=== PATIENT | female | born 2000 | race Caucasian/White ===

== ENCOUNTER 2020-05-14 09:49 | Emergency (ER) | payer SELFPAY ==
[2020-05-14 10:34] LABS: Absolute Lymphocytes (CBC) 1.7 K/uL (0.7-4.9); Basophils % 0.7 % (0-1.3); Hematocrit 40.7 % (36.0-45.0); MPV 8.7 fL (7.6-11.3); RBC Red Blood Cell Count 4.62 M/uL (3.86-4.86)
[2020-05-14 10:49] LABS: Urine Blood 1+ (NEG); Urine Glucose NEGATIVE (NEG); Urine Protein NEGATIVE (NEG); Urine Specific Gravity 1.025 (1.005-1.030); Urine pH 6.5 (5.0-7.0)
[2020-05-14 10:55] LABS: Potassium 3.6 mmol/L (3.5-5.1)
--- NOTE | 2020-05-14 11:09 | RAD REPORT ---
EXAM DESCRIPTION: RAD - Chest Single View - 05/14/2020 10:47 am CLINICAL HISTORY: right sided chest pain Chest pain. COMPARISON: No comparisons FINDINGS: Portable technique limits examination quality. The lungs are grossly clear. The heart is normal in size. No displaced fractures. IMPRESSION: No acute intrathoracic process suspected.
--- NOTE | 2020-05-14 11:30 | EDPHYS ---
Physician Documentation [facility] Name: Bushra Marc Age: 20 yrs Sex: Female : 2000 Arrival Date: 05/14/2020 Time: 09:51 Bed 18 Private MD: ED Physician Lazaro Parekh HPI: 05/14 10:11 This 20 yrs old Female presents to ER via Ambulatory with complaints of Right jmm side pain. 10:11 The patient or guardian reports chest pain that is located primarily in the anterior jm chest wall, right. The pain does not radiate. Associated signs and symptoms: Pertinent positives: cough, Pertinent negatives: shortness of breath. The chest pain is described as sharp. Duration: The patient or guardian reports a single episode, that is still ongoing. Modifying factors: The symptoms are alleviated by nothing. the symptoms are aggravated by deep breath. This is a 20 year old female with a history of asthma, that presents to the ED with complaints of right sided chest pain beginning approx a week ago worsening with cough. . 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 - Social history:: Smoking status: Patient reports the use of cigarette tobacco products, smokes one-half pack cigarettes per day. ROS: 10:11 Constitutional: Negative for fever, chills, and weight loss. jmm 10:11 Cardiovascular: Positive for chest pain. 10:11 Respiratory: Positive for cough. 10:11 All other systems are negative. Exam: 10:11 Constitutional: This is a well developed, well nourished patient who is awake, alert, jmm and in no acute distress. Head/Face: atraumatic. Eyes: EOMI, no conjunctival erythema appreciated ENT: Moist Mucus Membranes Cardiovascular: Regular rate and rhythm. No edema appreciated 10:11 Abdomen/GI: Non distended, soft Back: Normal ROM Skin: General appearance color normal MS/ Extremity: Moves all extremities, no obvious deformities appreciated, no edema noted to the lower extremities Neuro: Awake and alert, normal gait Psych: Behavior is normal, Mood is normal, Patient is cooperative and pleasant 10:11 Chest/axilla: Palpation: tenderness, that is moderate, of the anterior aspect of right upper chest. 10:44 ECG was reviewed by the Attending Physician. [facility] Vital Signs: 10:03 BP 139 / 72; Pulse 100; Resp 18; Temp 98.5(O); Pulse Ox 100% on R/A; Weight 66.22 kg; em Height 5 ft. 5 in. (165.10 cm); Pain 6/10; 11:08 BP 112 / 61; Pulse 79; Resp 18; Pulse Ox 100% on R/A; jr10 11:40 BP 115 / 62; Pulse 87; Resp 18; Temp 98.5; Pulse Ox 100% on R/A; Pain 0/10; jr10 10:03 Body Mass Index 24.30 (66.22 kg, 165.10 cm) em MDM: 10:11 Patient medically screened. [facility] 11:28 Data reviewed: vital signs, nurses notes. Counseling: I had a detailed discussion with [facility] the patient and/or guardian regarding: the historical points, exam findings, and any diagnostic results supporting the discharge/admit diagnosis, lab results, radiology results, the need for outpatient follow up, to return to the emergency department if symptoms worsen or persist or if there are any questions or concerns that arise at home. ED course: CP is reproduceable. D-dimer negative. I do not suspect an acutely threatening intrathoracic process. Patient is alert and non toxic in appearance in the ED. Patient is advised to follow up with pcp and otherwise given strict return precautions. Patient understood and agrees with the plan of care. . 05/14 10:19 Order name: D-Dimer; Complete Time: 11:05 [facility] 05/14 10:19 Order name: BMP; Complete Time: 11: [facility] 05/14 10:19 Order name: Chest Single View XRAY; Complete Time: 11:12 [facility] 05/14 10:19 Order name: CBC with Diff; Complete Time: 11: [facility] 05/14 10:22 Order name: Urine Dipstick--Ancillary (enter results); Complete Time: 11: 05/14 10:22 Order name: Urine --Ancillary (enter results); Complete Time: 11: 05/14 10:19 Order name: EKG - Nurse/Tech; Complete Time: 10:43 [facility] 05/14 10:19 Order name: Saline Lock; Complete Time: 10:32 jm EC:44 Rate is 94 beats/min. Rhythm is regular. QRS [place] is Normal. [place] interval is normal. QRS jmm interval is normal. QT interval is normal. No Q waves. T waves are Normal. No ST changes noted. Reviewed by me. Administered Medications: No medications were administered Disposition: 12:55 Co-signature as Attending Physician, Lazaro Parekh MD I agree with the assessment and kdr plan of care. Disposition: 05/14/20 11:30 Discharged to Home. Impression: Chest pain, unspecified. - Condition is Stable. - Discharge Instructions: Nonspecific Chest Pain. - Prescriptions for Medrol (Itz) 4 mg Oral Tablets, Dose Pack - take 1 tablet by ORAL route as directed - follow package instructions; 1 packet. orphenadrine citrate 100 mg Oral Tablet Sustained Release - take 1 tablet by ORAL route 2 times per day As needed; 20 tablet. - Medication Reconciliation Form, Thank You Letter, Antibiotic Education, Prescription Opioid Use form. - Follow up: Private Physician; When: 2 - 3 days; Reason: Recheck today's complaints, Continuance of care, Re-evaluation by your physician. Signatures: Dispatcher [employer] EDLazaro Miner MD MD kdr Mickail, Joel, PA PA [facility] Wisam Serrano, RN RN Perla Blackwell RN RN jr10 Corrections: (The following items were deleted from the chart) 11:42 11:30 05/14/2020 11:30 Discharged to Home. Impression: Chest pain, unspecified. jr10 Condition is Stable. Forms are Medication Reconciliation Form, Thank You Letter, Antibiotic Education, Prescription Opioid Use. Follow up: Private Physician; When: 2 - 3 days; Reason: Recheck today's complaints, Continuance of care, Re-evaluation by your physician. [facility]
--- NOTE | 2020-05-14 11:30 | ER ---
Nurse's Notes [facility] Name: Bushra Marc Age: 20 yrs Sex: Female : 2000 Arrival Date: 05/14/2020 Time: 09:51 Bed 18 Private MD: Diagnosis: Chest pain, unspecified Presentation: 05/14 10:03 Chief complaint: Patient states: right sided chest pain that radiates into the right em side of back when coughing or sneezing, mild cough, threw up once yesterday, had 100 temp 3 days ago. Coronavirus screen: Patient reports a cough. Patient reports shortness of breath or difficulty breathing. Patient reports a measured and/or subjective temperature greater than 100.4F. Patient denies travel on a cruise ship or to a country the [facility] currently lists as an affected area. Patient denies contact with known and/or suspected case of COVID-19. Ebola Screen: Patient negative for fever greater than or equal to 101.5 degrees Fahrenheit, and additional compatible Ebola Virus Disease symptoms Patient denies exposure to infectious person. Patient denies travel to an Ebola-affected area in the 21 days before illness onset. No symptoms or risks identified at this time. Initial Sepsis Screen: Does the patient meet any 2 criteria? HR > 90 bpm. No. Patient's initial sepsis screen is negative. Does the patient have a suspected source of infection? No. Patient's initial sepsis screen is negative. Risk Assessment: Do you want to hurt yourself or someone else? Patient reports no desire to harm self or others. Onset of symptoms was May 06, 2020. 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 - Social history:: Smoking status: Patient reports the use of cigarette tobacco products, smokes one-half pack cigarettes per day. Screenin:30 Abuse screen: Denies threats or abuse. Denies injuries from another. Nutritional jr10 screening: No deficits noted. Tuberculosis screening: No symptoms or risk factors identified. Fall Risk IV access (20 points). Assessment: 10:30 General: Appears in no apparent distress. Behavior is calm, cooperative. Pain: jr10 Complains of pain in diaphragm and right breast Pain radiates to left scapular area, left subscapular area and left mid back. Neuro: No deficits noted. Cardiovascular: Reports chest pain, Denies diaphoresis, nausea, shortness of breath, vomiting, Capillary refill < 3 seconds Pulses are all present. Edema is absent. Respiratory: Reports cough that is dry, pain with cough since x1 week pain with respiration since x1 week Breath sounds are clear bilaterally. GI: No deficits noted. : No deficits noted. Derm: No deficits noted. Musculoskeletal: No deficits noted. Vital Signs: 10:03 BP 139 / 72; Pulse 100; Resp 18; Temp 98.5(O); Pulse Ox 100% on R/A; Weight 66.22 kg; em Height 5 ft. 5 in. (165.10 cm); Pain 6/10; 11:08 BP 112 / 61; Pulse 79; Resp 18; Pulse Ox 100% on R/A; jr10 11:40 BP 115 / 62; Pulse 87; Resp 18; Temp 98.5; Pulse Ox 100% on R/A; Pain 0/10; jr10 10:03 Body Mass Index 24.30 (66.22 kg, 165.10 cm) em ED Course: 09:51 Patient arrived in ED. mr 09:55 Manuel Moran PA is PHCP. m 09:55 Lazaro Parekh MD is Attending Physician. [facility] 10:06 Triage completed. em 10:06 Arm band placed on. em 10:26 Initial lab(s) drawn, by la, sent to lab. Inserted saline lock: 22 gauge in right em antecubital area, using aseptic technique. Blood collected. 10:27 Perla Horne, NANCI is Primary Nurse. jr10 10:30 Patient has correct armband on for positive identification. Placed in gown. Bed in low jr10 position. Call light in reach. Side rails up X 1. director of content and programming on. Pulse ox on. NIBP on. 10:47 Chest Single View XRAY In Process Unspecified. EDMS 11:41 IV discontinued, No redness/swelling at site. Pressure dressing applied. jr10 Administered Medications: No medications were administered Outcome: 11:30 Discharge ordered by MD. hernandez 11:41 Discharged to home ambulatory. jr10 11:41 Condition: good 11:41 Discharge instructions given to patient, Instructed on discharge instructions, follow up and referral plans. Demonstrated understanding of instructions, follow-up care, medications, Prescriptions given X 2. 11:42 Patient left the ED. jr10 Signatures: Dispatcher [employer] EDManuel Schwab PA PA jmm Rivera, Mary mr Munoz, Edgar, RN RN Perla Blackwell RN RN jr10
[2020-05-14 11:50] VITALS: TEMP 98.5; O2SAT 100
[2020-05-14 11:53] VITALS: BP 115/62
--- NOTE | 2020-05-15 15:28 | EKG ---
Test Date: 2020-05-14 Test Time: 10:27:48 Corporate Giving Manager: LAURITA MEASUREMENT RESULTS: Intervals: Rate: 94 WA: 128 QRSD: 92 QT: 338 QTc: 422 [place]: P: 38 WA: 128 QRS: 83 T: 56 INTERPRETIVE STATEMENTS: Normal sinus rhythm Normal ECG No previous ECG available for comparison Electronically Signed On 05-15-20 15:24:28 CDT by Santino Tirado
== END 2020-05-14 11:42 | disposition home or self-care (01) ==
LOC: ER 09:49
DX: R07.9 Chest pain, unspecified (principal); J45.909 Unspecified asthma, uncomplicated; F17.210 Nicotine dependence, cigarettes, uncomplicated
CPT/HCPCS: 36415; 71045; 80048; 81003; 81025; 85025; 85379; 93005; 99284

== ENCOUNTER 2020-05-20 00:13 | Emergency (ER) | payer SELFPAY ==
[2020-05-20 01:12] LABS: Basophils % 0.4 % (0-1.3); Hematocrit 39.4 % (36.0-45.0); Lymphocytes % 29.9 % (15.3-44.8); MPV 8.7 fL (7.6-11.3); RBC Red Blood Cell Count 4.48 M/uL (3.86-4.86)
[2020-05-20 01:23] LABS: Protime INR 1.17
[2020-05-20 01:27] LABS: Barbiturates NEGATIVE (NEGATIVE); Benzodiazepines NEGATIVE (NEGATIVE); Cocaine NEGATIVE (NEGATIVE); METHAMPHETAM NEGATIVE (NEGATIVE); Methadone NEGATIVE (NEGATIVE); Opiates NEGATIVE (NEGATIVE); Phencyclidine NEGATIVE (NEGATIVE); THC Cannibis POSITIVE (NEGATIVE)
[2020-05-20 01:27] LABS: ALT/SGPT 15 U/L (12-78); AST/SGOT 16 U/L (15-37); Albumin 4.2 g/dL (3.4-5.0); Alkaline Phosphatase 71 U/L (45-117); BUN Blood Urea Nitrogen 13 mg/dL (7-18); Bicarbonate 25 mmol/L (21-32); Bilirubin Direct 0.2 mg/dL (0-0.2); Bilirubin Total 0.8 mg/dL (0.2-1.0); Glucose Level 103 mg/dL (74-106); Protein, Total 7.9 g/dL (6.4-8.2); Sodium Level 141 mmol/L (136-145)
[2020-05-20] MEDS ORDERED: TETANUS & DIPHTHERIA TOX,ADULT 0.5 ML VIAL ONE (01:43)
[2020-05-20 02:39] LABS: Urine Blood 2+ (NEG); Urine Glucose NEGATIVE (NEG); Urine Protein 1+ (NEG); Urine Specific Gravity 1.025 (1.005-1.030)
--- NOTE | 2020-05-20 10:15 | RAD REPORT ---
EXAM DESCRIPTION: CT Head Brain Wo Cont CLINICAL HISTORY: Forehead hematoma , slamming it against window COMPARISON: None. TECHNIQUE: Head/brain axial images acquired without contrast. Coronal and sagittal reformats created . Exam performed according to departmental dose-optimization program which includes automated exposur e control, adjustment of mA and/or kV according to patient size, and/or use of iterative reconstructi on technique. FINDINGS: No midline shift, mass effect, intracranial hemorrhage, or hydrocephalus. Brain parenchyma unremarkable. Paranasal sinuses and mastoid air cells clear. No skull fracture or significant skull lesion. IMPRESSION: Unremarkable CT head without contrast. Electronically signed by: Binh Nicolas MD 05/20/2020 1:44 AM CDT Due to temporary technical issues with the PACS/Fluency reporting system, reports are being signed by the in house radiologist without review as a courtesy to ensure prompt reporting. The interpreting r adiologist is fully responsible for the content of the report.
[2020-05-21] MEDS ORDERED: NITROFURAN MACRO 100 MG CAP PO ONE (02:51)
--- NOTE | 2020-05-21 07:35 | EKG ---
Test Date: 2020-05-20 Test Time: 00:28:42 Supervisor Transferring And Boxing: MERARI MEASUREMENT RESULTS: Intervals: Rate: 70 IA: 126 QRSD: 92 QT: 364 QTc: 393 [place]: P: 40 IA: 126 QRS: 63 T: 55 INTERPRETIVE STATEMENTS: Normal sinus rhythm with sinus arrhythmia Normal ECG Compared to ECG 05/14/2020 10:27:48 No significant changes Electronically Signed On 05-21-20 07:32:41 CDT by Santino Tirado
--- NOTE | 2020-05-21 09:56 | EDPHYS ---
Physician Documentation [facility] Name: Bushra Marc Age: 20 yrs Sex: Female : 2000 Arrival Date: 05/20/2020 Time: 00:14 Bed 16 Private MD: ED Physician Lazaro Parekh HPI: 05/20 01:04 This 20 yrs old Female presents to ER via Law Enforcement with complaints of pkl Mental Crisis. 01:04 The patient presents to the emergency department with depression, homicidal ideation, pkl the patient has harmed or wants to harm Patient slamming, throwing and breaking things against neighbor's door., a history of a suicide gesture, cut left forearm with a knife. Onset: The symptoms/episode began/occurred just prior to arrival. H/O Bipolar disorder. Admitted to psychiatric facility 2 years ago. Not taking psychiatric medications because she said the medications are too expensive. 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 - Social history:: Smoking status: Patient denies any tobacco usage or history of. Patient uses street drugs, marijuana, Patient/guardian denies using alcohol. ROS: 01:04 Eyes: Negative for injury, pain, redness, and discharge, ENT: Negative for injury, pkl pain, and discharge, Neck: Negative for injury, pain, and swelling, Cardiovascular: Negative for chest pain, palpitations, and edema, Respiratory: Negative for shortness of breath, cough, wheezing, and pleuritic chest pain, Abdomen/GI: Negative for abdominal pain, nausea, vomiting, diarrhea, and constipation, Back: Negative for injury and pain, : Negative for injury, bleeding, discharge, and swelling, MS/Extremity: Negative for injury and deformity. 01:04 Skin: Positive for hematoma, of the forehead, superficial lacerations lorearm. 01:04 Neuro: Negative for altered mental status, loss of consciousness. 01:04 Psych: Positive for depression, homicidal ideation, suicidal ideation. Exam: 01:04 Eyes: Pupils equal round and reactive to light, extra-ocular motions intact. Lids and pkl lashes normal. Conjunctiva and sclera are non-icteric and not injected. Cornea within normal limits. Periorbital areas with no swelling, redness, or edema. 01:04 Head/face: Noted is hematoma, that is moderate, of the forehead. 01:04 ENT: Exam is negative for acute changes. 01:04 Neck: Exam negative for acute changes, nuchal rigidity. 01:04 Chest/axilla: Exam negative for acute changes. 01:04 Cardiovascular: Rate: normal, Rhythm: regular. 01:04 Respiratory: the patient does not display signs of respiratory distress, Respirations: normal, Breath sounds: are clear throughout. 01:04 Abdomen/GI: Exam negative for acute changes. 01:04 Back: Exam negative for acute changes. 01:04 : Exam negative for acute changes. 01:04 Musculoskeletal/extremity: Extremities: grossly normal except: noted in the left forearm: superficial lacerations. 01:04 Neuro: Exam negative for acute changes. pkl 01:04 Psych: Behavior/mood is cooperative, Affect is calm, Patient having thoughts of suicide. Patient having thoughts of homicide. Judgement / Insight is impaired. Vital Signs: 00:14 BP 131 / 90; Pulse 75; Resp 16; Temp 98.5(O); Pulse Ox 97% on R/A; Weight 64.86 kg (R); jb4 Height 5 ft. 4 in. (162.56 cm) (R); Pain 6/10; 08:30 BP 103 / 71; Pulse 77; Resp 16; Temp 98.1; Pulse Ox 97% ; Pain 0/10; jr10 17:05 BP 124 / 72; Pulse 68; Resp 18; Pulse Ox 100% on R/A; dh4 22:00 BP 119 / 74; Pulse 75; Resp 16; Temp 97.9(TE); Pulse Ox 99% on R/A; Pain 0/10; mt2 07 02:10 BP 122 / 74; Pulse 65; Resp 16; Temp 97.9; Pulse Ox 100% ; Pain 0/10; mt2 07:00 BP 115 / 62; Pulse 56; Resp 18; Temp 97.8; Pulse Ox 100% ; jr10 10:16 BP 131 / 69; Pulse 68; Resp 18; Temp 97.9; Pulse Ox 97% ; Pain 0/10; jr10 05/20 00:14 Body Mass Index 24.55 (64.86 kg, 162.56 cm) jb4 MDM: 05/20 00:50 Patient medically screened. pkl 02:24 Data reviewed: vital signs, nurses notes, lab test result(s), EKG. ED course: Consult pkl [facility] screener. 04:59 ED course: Patient evaluated by [facility] screener. Recommend in patient pkl treatment. 09:08 ED course: The patient is sleeping comfortably in bed at this time. Nursing reports kdr that she ate breakfast without any issues and has not required any intervention (chemical or otherwise).. 16:44 ED course: The patient continues to rest comfortably without any need for intervention kdr or control. 05/21 02:35 ED course: Pt calm, watching tv, not requiring sedation, normal vitals, awaiting yarn examiner transfer, + UTI, ordered macrobid.. 06:16 ED course: No acceptance for transfer overnight, patient sleeping comfortably, stable rn vitals. . 10:01 ED course: I re-interviewed the patient and she continues to not be suicidal at this kdr time. Further, [facility] has recontracted her and after that interview, she reportedly has an appointment at 1:00 PM today to be seen at [facility]. I communicated this to her mother (Lidia Sun [phone]) who will be coming to pick her up. 05/20 00:32 Order name: Acetaminophen; Complete Time: 02:23 05/20 00:32 Order name: Basic Metabolic Panel; Complete Time: 02:23 05/20 00:32 Order name: CBC with Diff; Complete Time: 02:23 05/20 00:32 Order name: ETOH Level; Complete Time: 02:23 05/20 00:32 Order name: Hepatic Function; Complete Time: 02:23 05/20 00:32 Order name: PT-INR; Complete Time: 02:23 05/20 00:32 Order name: Ptt, Activated; Complete Time: 02:23 05/20 00:32 Order name: Salicylate; Complete Time: 02:23 jb4 05/20 00:32 Order name: Urine Drug Screen; Complete Time: 02:23 4 05/20 00:34 Order name: Urine Dipstick--Ancillary (enter results); Complete Time: 02:49 bb 05/20 00:34 Order name: Urine --Ancillary (enter results); Complete Time: 02:49 bb 05/20 01:04 Order name: CT Head Brain wo Cont; Complete Time: 02:34 pkl 05/20 00:32 Order name: EKG; Complete Time: 00:32 jb4 05/20 00:32 Order name: EKG - Nurse/Tech; Complete Time: 00:32 jb4 05/20 00:32 Order name: IV Saline Lock; Complete Time: 00:32 05/20 00:32 Order name: Labs collected and sent; Complete Time: 00:32 05/20 00:32 Order name: Urine Dipstick-Ancillary (obtain specimen); Complete Time: 00:32 05/20 06:14 Order name: Diet Regular; Complete Time: 06:15 mw2 05/20 12:10 Order name: Diet Finger Food; Complete Time: 12:10 bd 05/21 07:05 Order name: Diet Finger Food; Complete Time: 07:06 ar5 Administered Medications: 05/20 01:51 Drug: Tetanus-Diphtheria Toxoid Adult 0.5 ml {Consulting It Architect: [employer]. Exp: jb4 12/12/2022. Lot #: [id number]. } Route: IM; Site: right deltoid; 05/21 02:42 Drug: Macrobid 100 mg Route: PO; mt2 03:24 Follow up: Response: No adverse reaction mt2 Disposition: 05/21/20 09:55 Discharged to Home. Impression: Bipolar disorder, Suicidal ideations. - Condition is Stable. - Discharge Instructions: Bipolar Disorder, Suicidal Feelings: How to Help Yourself, Stress and Stress Management. - Medication Reconciliation Form, Thank You Letter form. - Follow up: Private Physician; When: Today; Reason: If symptoms return, Further diagnostic work-up, Recheck today's complaints, Continuance of care, Re-evaluation by your physician. - Problem is an acute exacerbation. - Symptoms have improved. - Notes: Please keep your appointment today at 1:00 PM with [facility] Signatures: Dispatcher [employer] EDJose Roberto Kelly MD MD pkl Rittger, Kevin, MD MD kdr Williams, Irene, RN RN Ramon Zacarias MD MD rn Bryson, James, RN RN jb4 Michelle Monterroso, NANCI RN mt2 Corrections: (The following items were deleted from the chart) 10:30 09:55 05/21/2020 09:55 Discharged to Home. Impression: Bipolar disorder; Suicidal iw ideations. Condition is Stable. Forms are Medication Reconciliation Form, Thank You Letter, Antibiotic Education, Prescription Opioid Use. Follow up: Private Physician; When: Today; Reason: If symptoms return, Further diagnostic work-up, Recheck today's complaints, Continuance of care, Re-evaluation by your physician. Problem is an acute exacerbation. Symptoms have improved. kdr
--- NOTE | 2020-05-21 09:56 | ER ---
Nurse's Notes [facility] Name: Bushra Marc Age: 20 yrs Sex: Female : 2000 Arrival Date: 05/20/2020 Time: 00:14 Bed 16 Private MD: Diagnosis: Bipolar disorder;Suicidal ideations Presentation: 05/20 00:14 Chief complaint: PT brought in by [place] , pt in cuffs. PD called by Pt's neighbors jb4 due to slamming, throwing, and breaking things against their door. Pt admitted to [place] [employer] having suicidal ideations. Pt has superficial lacerations on the left forearm. Has a half dollar sized hematoma in the middle of her forehead from slamming it into the back of the police officers window. Pt denies visual or auditory hallucinations. 00:14 Coronavirus screen: Proceed with normal triage. Ebola Screen: No symptoms or risks jb4 identified at this time. Initial Sepsis Screen: Does the patient meet any 2 criteria? No. Patient's initial sepsis screen is negative. Does the patient have a suspected source of infection? No. Patient's initial sepsis screen is negative. Risk Assessment: Do you want to hurt yourself or someone else? Patient reports desire/thoughts of hurting themselves or someone else. Provider notified. Onset of symptoms was May 20, 2020. Transition of care: patient was not received from another setting of care. 00:14 Method Of Arrival: Law Enforcement: Pablo HUYNH 4 00:14 Acuity: ADELIA 2 jb4 CLERICAL DENTIST ASSISTANT: 00:14 LMP 05/20/2020 jb4 Historical: - Allergies: 00:14 No Known Allergies; jb4 - Home Meds: 00:14 None [Active]; jb4 - PMHx: 00:14 ADD/ADHD; Asthma; Migraines; Bipolar disorder; jb4 - PSHx: 00:14 ; jb4 - Immunization history:: Adult Immunizations up to date, Last tetanus immunization: unknown. - Social history:: Smoking status: Patient denies any tobacco usage or history of. Patient uses street drugs, marijuana, Patient/guardian denies using alcohol. Screenin:14 Abuse screen: Denies threats or abuse. Nutritional screening: No deficits noted. jb4 Tuberculosis screening: No symptoms or risk factors identified. Fall Risk None identified. Assessment: 00:14 General: Appears in no apparent distress. comfortable, Behavior is calm, cooperative. jb4 Pain: Complains of pain in right side Pain does not radiate. Pain currently is 6 out of 10 on a pain scale. Neuro: Level of Consciousness is awake, alert, obeys commands, Oriented to person, place, time, situation. Cardiovascular: Patient's skin is warm and dry. Respiratory: Airway is patent Respiratory effort is even, unlabored, Respiratory pattern is regular, symmetrical. GI: No signs and/or symptoms were reported involving the gastrointestinal system. : No signs and/or symptoms were reported regarding the genitourinary system. EENT: No signs and/or symptoms were reported regarding the EENT system. Derm: Skin is pink, warm \T\ dry. Musculoskeletal: Circulation, motion, and sensation intact. Range of motion: intact in all extremities. Injury Description: Laceration sustained to dorsal aspect of left forearm is clean, superficial, 2.6 to 7.5 cm long, not bleeding, Hematoma noted to the middle of the forehead. Half dollar in size. 04:49 Reassessment: PT is resting in bed comfortable. Appears pleasant and is smiling with jb4 sitter at the bedside. Both are watching TV and talking. Respirations are even an unlabored. No s/s of pain or distress are noted. 09:23 Reassessment: Patient appears in no apparent distress at this time. Patient and/or jr10 family updated on plan of care and expected duration. Pain level reassessed. Patient is alert, oriented x 3, equal unlabored respirations, skin warm/dry/pink. Pt is laying in bed resting comfortably, is calm and cooperative watching tv at this time. One to one risk sitter at bedside at present. Pt denies SI/HI at present. Breakfast tray delivered. Will continue to monitor and assess until dispo. Patient states feeling better. 13:11 Reassessment: Patient appears in no apparent distress at this time. Patient and/or jr10 family updated on plan of care and expected duration. Pain level reassessed. Patient is alert, oriented x 3, equal unlabored respirations, skin warm/dry/pink. pt given lunch tray, resting quietly with NAD. Pt remains calm and cooperative at present. Will continue to monitor and assess. 16:54 Reassessment: Patient appears in no apparent distress at this time. Patient and/or jr10 family updated on plan of care and expected duration. Pain level reassessed. Patient is alert, oriented x 3, equal unlabored respirations, skin warm/dry/pink. Pt provided with dinner tray, sitting up in bed eating. Pt remains calm and cooperative at this time. NADN. Will continue to monitor and assess until dispo. 19:00 Reassessment: Patient and/or family updated on plan of care and expected duration. Pain mt2 level reassessed. Patient is alert, oriented x 3, equal unlabored respirations, skin warm/dry/pink. Reassessment: ASSUMED CARE OF PT. PT AWAITING TRANSFER FOR EVAL. PT CALM AND COOPERATIVE. SITTER AT BEDSIDE. SAFETY CHECK COMPLETED. ALL POTENTIAL HARMFUL ITEMS OUT OF ROOM. General: Appears in no apparent distress. Behavior is calm, cooperative. Pain: Denies pain. Neuro: No deficits noted. Cardiovascular: No deficits noted. Respiratory: No deficits noted. GI: No deficits noted. : No deficits noted. EENT: No deficits noted. Derm: No deficits noted. Musculoskeletal: No deficits noted. 20:00 Reassessment: Patient and/or family updated on plan of care and expected duration. Pain mt2 level reassessed. Patient is alert, oriented x 3, equal unlabored respirations, skin warm/dry/pink. Patient denies pain at this time. General: Appears in no apparent distress. Behavior is cooperative. 21:00 Reassessment: SITTER AT BEDSIDE. PLEASE REFER TO 15 MINUTE SITTER OBSERVATION PAPER mt2 CHARTING. General: Appears in no apparent distress. comfortable, Behavior is calm, cooperative, quiet. Pain: Denies pain. 22:11 Reassessment: Patient and/or family updated on plan of care and expected duration. Pain mt2 level reassessed. Patient is alert, oriented x 3, equal unlabored respirations, skin warm/dry/pink. Patient denies pain at this time. Reassessment: SITTER AT BEDSIDE. General: Appears in no apparent distress. comfortable, Behavior is calm, cooperative, quiet. 23:00 Reassessment: Patient and/or family updated on plan of care and expected duration. Pain mt2 level reassessed. Patient is alert, oriented x 3, equal unlabored respirations, skin warm/dry/pink. sitter at bedside Patient denies pain at this time. General: Appears in no apparent distress. comfortable, Behavior is calm, cooperative, quiet. 05/21 00:00 Reassessment: Patient and/or family updated on plan of care and expected duration. Pain mt2 level reassessed. Patient is alert, oriented x 3, equal unlabored respirations, skin warm/dry/pink. sitter at bedside. General: Appears in no apparent distress. comfortable, Behavior is cooperative. 01:15 Reassessment: Patient and/or family updated on plan of care and expected duration. Pain mt2 level reassessed. Patient is alert, oriented x 3, equal unlabored respirations, skin warm/dry/pink. sitter at bedside. 02:13 Reassessment: Patient and/or family updated on plan of care and expected duration. Pain mt2 level reassessed. Patient is alert, oriented x 3, equal unlabored respirations, skin warm/dry/pink. Patient denies pain at this time. Reassessment: NURSE AT BEDSIDE. SITTER AT [facility]. General: Appears in no apparent distress. comfortable, Behavior is calm, cooperative, quiet. 03:00 Reassessment: Patient and/or family updated on plan of care and expected duration. Pain mt2 level reassessed. Patient is alert, oriented x 3, equal unlabored respirations, skin warm/dry/pink. Patient denies pain at this time. Reassessment: SITTER AT BEDSIDE. General: Appears in no apparent distress. comfortable, Behavior is calm, cooperative, quiet. 04:00 Reassessment: Patient and/or family updated on plan of care and expected duration. Pain mt2 level reassessed. Patient is alert, oriented x 3, equal unlabored respirations, skin warm/dry/pink. SITTER AT BEDSIDE. 05:01 Reassessment: Patient and/or family updated on plan of care and expected duration. Pain mt2 level reassessed. Patient is alert, oriented x 3, equal unlabored respirations, skin warm/dry/pink. SITTER AT BEDSIDE. General: Appears in no apparent distress. comfortable, Behavior is calm, cooperative, quiet. 07:22 Reassessment: No changes from previously documented assessment. Patient and/or family jr10 updated on plan of care and expected duration. Pain level reassessed. Patient is alert, oriented x 3, equal unlabored respirations, skin warm/dry/pink. Patient states feeling better. Patient states symptoms have improved. 08:06 Reassessment: MD at bedside to reassess. jr10 09:54 Reassessment: pt spoke to Julia from [facility] via telephone, pt agrees to iw out patient appt today at 1:00. Psych: 05/20 00:14 Subjective: Patient's mood is sad, Delusions are denied, Hallucinations are denied jb4 Having thoughts of suicide. Objective: Patient is cooperative, Speech is normal, Affect is appropriate, Patient has mutilated themselves by cutting her left forearm in multiple places, slamming her head against the window in the back of the police vehicle. Interventions: Removed personal items and placed in bag. Patient placed in hospital gown. Searched person for dangerous items. Urine collected and sent for urine drug test. Belonging list filled out. Suicide Risk Assessment: Sad Person Scale: Sex of patient: Female: Score 0 points. Age of patient: Score 1 point if patient 15-34. Depression: Score 1 point if signs of depression are present. Previous Attempt: Score 1 point if patient has previously attempted suicide. Substance Abuse: Score 1 point if patient abuses alcohol or drugs. Rational Thinking: Score 1 point if patient is lacking rational thinking. Social Support: Score 1 point if social support is lacking and/or unavailable. Organized Plan: Score 1 point if patient had a plan in place. Relationship: Score 1 point if patient is , , , or for a single male Chronic Sickness: Score 0 point if patient does not have a chronic illness, debilitating, or severe disorder. TOTAL POINTS: If total points are 7-10, the proposed clinical action is to hospitalize or commit. Implement suicide precautions. Safety Checks: Personal items have been removed. Door is open. No visitors are present at this time. Patient uses marijuana Last use was 45 minutes ago. Commitment: Patient will be an involuntary commitment. 08:00 Subjective: Delusions are denied, Hallucinations are denied Having thoughts of denies jr10 SI at this time. Objective: Patient is cooperative, Speech is normal, Affect is appropriate. Safety Checks: Personal items have been removed. Door is open. No visitors are present at this time. risk sitter at bedside. 19:15 Subjective: Delusions are denied, Hallucinations are denied Having thoughts of. mt2 Objective: Patient is cooperative, Speech is normal, Affect is appropriate. Interventions: Removed personal items and placed in bag. Patient reassessed during use of restraints. Patient is physically safe. Patient's cardiac status is stable. Patient's respirations are even and unlabored. Patient has good circulation in all extremities as indicated by capillary refill < 3 seconds. Patient's ROM assessed and is intact. Patient nutrition and hydration needs will continue to be monitored and addressed. Patient hygiene and elimination needs met. Patient assessed for signs of distress. Patient remains reasonably comfortable at this time. Assisted patient in de-escalation of behavior by removing stimuli causing behavior where possible. Restraints continue to be necessary for patient and staff safety. 05/21 04:42 Subjective: Delusions are denied, Hallucinations are denied. Objective: Patient is mt2 cooperative, Speech is normal, Affect is appropriate. Interventions: Removed personal items and placed in bag. Patient placed in hospital gown. Patient reassessed during use of restraints. Patient is physically safe. Patient's cardiac status is stable. Patient's respirations are even and unlabored. Patient has good circulation in all extremities as indicated by capillary refill < 3 seconds. Patient's ROM assessed and is intact. Patient nutrition and hydration needs will continue to be monitored and addressed. Patient hygiene and elimination needs met. Patient assessed for signs of distress. Patient remains reasonably comfortable at this time. Assisted patient in de-escalation of behavior by removing stimuli causing behavior where possible. Restraints continue to be necessary for patient and staff safety. Safety Checks: SITTER PRESENT. DEFER TO SITTER PAPER DOCUMENTATION. 04:43 Safety Checks: Personal items have been removed. Door is open. SITTER PRESENT. DEFER TO mt2 SITTER PAPER DOCUMENTATION. 07:19 Subjective: Delusions are denied, Hallucinations are denied Having thoughts of jr10 continues to deny suicidal thoughts at present. Objective: Patient is cooperative, pleasant Speech is normal, Affect is appropriate. Interventions: Removed personal items and placed in bag. Patient placed in hospital gown. Searched person for dangerous items. Belonging list filled out. risk sitter at bedside for one to one observation of high risk patient. Interventions: Patient reassessed during use of restraints. Patient is physically safe. Patient nutrition and hydration needs will continue to be monitored and addressed. Patient hygiene and elimination needs met. Safety Checks: Personal items have been removed. Door is open. Vital Signs: 05/20 00:14 BP 131 / 90; Pulse 75; Resp 16; Temp 98.5(O); Pulse Ox 97% on R/A; Weight 64.86 kg (R); jb4 Height 5 ft. 4 in. (162.56 cm) (R); Pain 6/10; 08:30 BP 103 / 71; Pulse 77; Resp 16; Temp 98.1; Pulse Ox 97% ; Pain 0/10; jr10 17:05 BP 124 / 72; Pulse 68; Resp 18; Pulse Ox 100% on R/A; dh4 22:00 BP 119 / 74; Pulse 75; Resp 16; Temp 97.9(TE); Pulse Ox 99% on R/A; Pain 0/10; mt2 05/21 02:10 BP 122 / 74; Pulse 65; Resp 16; Temp 97.9; Pulse Ox 100% ; Pain 0/10; mt2 07:00 BP 115 / 62; Pulse 56; Resp 18; Temp 97.8; Pulse Ox 100% ; jr10 10:16 BP 131 / 69; Pulse 68; Resp 18; Temp 97.9; Pulse Ox 97% ; Pain 0/10; jr10 05/20 00:14 Body Mass Index 24.55 (64.86 kg, 162.56 cm) jb4 ED Course: 05/20 00:14 Patient arrived in ED. cl3 00:14 Arm band placed on right wrist. jb4 00:14 Patient has correct armband on for positive identification. Placed in gown. Bed in low jb4 position. Call light in reach. Side rails up X 1. 00:22 Delgado Young, RN is Primary Nurse. jb4 00:27 Triage completed. jb4 00:30 Initial lab(s) drawn, by aquatic laborer, sent to lab. Inserted saline lock: 20 gauge in right jb4 antecubital area, using aseptic technique. Blood collected. 00:50 Jose Roberto Hatfield MD is Attending Physician. pkl 01:34 CT Head Brain wo Cont In Process Unspecified. EDMS 02:27 Contacted [facility] for a screening and spoke with Hina. tt3 03:03 Kasi with [facility] called. Requested pt chart be faxed to . Began tt3 Facetime with pt and Kasi. 07:12 Primary Nurse role handed off by Delgado Young, RN jr10 07:12 Perla Horne, NANCI is Primary Nurse. jr10 08:31 [facility], talked to intakes dept, pt will be put on waiting bd list. 08:55 Attending Physician role handed off by Jose Roberto Hatfield MD kdr 08:55 Lazaro Parekh MD is Attending Physician. kdr 19:04 Report given to NANCI Martinez. jr10 19:27 Michelle Monterroso RN is Primary Nurse. mt2 21:54 No provider procedures requiring assistance completed. mt2 05/21 06:52 IV discontinued. mt2 07:05 Safety Checks: Personal items have been removed. The door is open or patient has been fm2 placed in a hallway bed/chair. There are no family/friend visitors at this time Sitter present at this time. 08:18 contacted [facility], requested screener to reevaluate pt. bd 08:43 refaxed chart to [facility]. bd Administered Medications: 05/20 01:51 Drug: Tetanus-Diphtheria Toxoid Adult 0.5 ml {Computer Support Technician: [employer]. Exp: jb4 12/12/2022. Lot #: [id number]. } Route: IM; Site: right deltoid; 05/21 02:42 Drug: Macrobid 100 mg Route: PO; mt2 03:24 Follow up: Response: No adverse reaction mt2 Outcome: 09:55 Discharge ordered by MD. kdr 10:29 Discharged to home ambulatory, with family. iw 10:29 Condition: improved 10:29 Discharge instructions given to patient, Instructed on discharge instructions, follow up and referral plans. Demonstrated understanding of instructions, follow-up care. 10:30 Patient left the ED. iw Signatures: Dispatcher [employer] EDMS Eli Pollokc Pin, MD MD pkLazaro Cullen MD MD kdr Williams, Irene, RN RN iw Bryson, James, RN RN jb4 Nadeen Benítez2 Milli Pickett 3 Daniel Urena 4 Jerry Robledo tt3 Michelle Monterroso RN RN mt2 Perla Horne, NANCI RN jr10 Corrections: (The following items were deleted from the chart) 05/20 00:39 00:14 Injury Description: Laceration sustained to dorsal aspect of left forearm is jb4 clean, superficial, 2.6 to 7.5 cm long, not bleeding, jb4 05/21 04:44 05/20 19:15 Subjective: Delusions are denied, Hallucinations are denied Having thoughts mt2 of mt2
[2020-05-21 10:46] VITALS: BP 131/69; TEMP 97.9; O2SAT 97
== END 2020-05-21 10:30 | disposition home or self-care (01) ==
LOC: ER 00:13
DX: F31.9 Bipolar disorder, unspecified (principal); Z23 Encounter for immunization
CPT/HCPCS: 36415; 70450; 80048; 80076; 80307; 80320; 80329; 81003; 81025; 85025; 85610; 85730; 90471; 90714; 93005; 99285